=== PATIENT | female | born 1980 | race Hispanic/Latino ===

== ENCOUNTER → 2023-11-19 | Day surgery (SDC) | payer BC ==
[~2023-11-19] MED LIST: ACETAMINOPHEN 1000 MG/100 ML IV ONE; BYSTOLIC10 MG PO; DEXAMETHASONE SOD PHOS 10 MG/1 ML VIAL ONE; DEXMEDETOMIDINE HCL 200 MCG/2 ML VIAL ONE; EPINEPHRINE HCL 1:1000 1ML 1 MG/ML AMP ONE; FAMOTIDINE 20 MG/2 ML VIAL IV ONE; FENTANYL CITRATE/PF 100MCG/2 ML INJ ONE; LACTATED RINGER'S 1,000 ML ONE; LIDOCAINE 1% W/EPINEPHRINE 20 ML VIAL ONE; LIDOCAINE HCL (LTA) 4 ML SOLN ONE; LIDOCAINE HCL 2% LOCAL INJ 5 ML SDV VIAL INJ ONE; MIDAZOLAM HCL 2 MG/2 ML VIAL ONE; NUTRAFOL PO; ONDANSETRON HCL INJ 2MG/ML 2ML 2 MG/ML VIAL ONE; PROPOFOL IV EMULSION 10 MG/ML 20 ML VIAL ONE; ROCURONIUM BROMIDE 10 MG/ML 5ML VIAL IV ONE; SEVOFLURANE INHAL SOLN 250 ML PEN BTL ONE; SUGAMMADEX SODIUM 200 MG/2 ML VIAL IV ONE; VENTOLIN HFA18 GM INH; VITAMIN D31 ML
[2023-11-19 11:24] VITALS: TEMP 97.6
[2023-11-19] MEDS: FENTANYL CITRATE/PF 100MCG/2 ML INJ ONE (11:49)
[2023-11-19] MEDS: ACETAMINOPHEN/CODEINE 300MG - 30MG TAB ONE (12:43)
[2023-11-19 12:50] VITALS: BP 138/89; PULSE 62; RESP 16; O2SAT 98
== END | disposition home or self-care (01) ==
LOC: OR 06:21
PROVIDERS: ATTEND Otolaryngology Otolaryngology/Facial Plastic Surgery
DX: K14.8 Other diseases of tongue (principal); R59.0 Localized enlarged lymph nodes; I10 Essential (primary) hypertension; E66.01 Morbid (severe) obesity due to excess calories; J45.909 Unspecified asthma, uncomplicated; F41.9 Anxiety disorder, unspecified; Z79.899 Other long term (current) drug therapy; I45.10 Unspecified right bundle-branch block; R00.1 Bradycardia, unspecified
CPT/HCPCS: 31541; 31622; 43191; 81025; 88305; 93005; J0131; J0171; J1100; J2001; J2250; J2405; J2704; J3010; J7121; 88304

== ENCOUNTER → 2023-12-24 | Day surgery (SDC) | payer BC ==
[~2023-12-24] MED LIST changes: -ACETAMINOPHEN 1000 MG/100 ML IV ONE; -DEXMEDETOMIDINE HCL 200 MCG/2 ML VIAL ONE; -EPINEPHRINE HCL 1:1000 1ML 1 MG/ML AMP ONE; -LACTATED RINGER'S 1,000 ML ONE; -LIDOCAINE HCL (LTA) 4 ML SOLN ONE; -MIDAZOLAM HCL 2 MG/2 ML VIAL ONE; -SUGAMMADEX SODIUM 200 MG/2 ML VIAL IV ONE
[2023-12-24] MEDS: LACTATED RINGER'S 1,000 ML ONE (08:58)
[2023-12-24] MEDS: FENTANYL CITRATE/PF 100MCG/2 ML INJ ONE (11:57)
[2023-12-24] MEDS: HYDROCODONE/APAP 5MG-325MG TAB ONE (12:22)
[2023-12-24 12:50] VITALS: BP 120/80; PULSE 70; RESP 16; O2SAT 98
== END | disposition home or self-care (01) ==
LOC: OR 08:26
PROVIDERS: ATTEND Otolaryngology Otolaryngology/Facial Plastic Surgery
DX: E04.1 Nontoxic single thyroid nodule (principal); I10 Essential (primary) hypertension; J45.909 Unspecified asthma, uncomplicated; F41.9 Anxiety disorder, unspecified; Z79.899 Other long term (current) drug therapy
CPT/HCPCS: 60220; 81025; 88307; J1100; J2001; J2405; J2704; J3010; J7121; J2003